=== PATIENT | male | born 1970 | race Caucasian/White ===

== ENCOUNTER → 2016-11-04 | Outpatient (CLI) | payer OTHER ==
[2016-11-04 17:17] LABS: BASO % 0.3 %; BASO ABS # 0.02 K/uL (0-0.2); COMPLETE YES; EOS % 3.4 %; HEMATOCRIT 41.4 % (42-52); LYMPH % 40.6 %; LYMPH ABS # 3.06 K/uL (1.2-3.4); MEAN CORPUSCULAR HEMOGLOBIN 31.5 pg (25-34); MEAN PLATELET VOLUME 10.1 fL (7.4-10.4); MONO % 6.8 %; NEUT % 48.9 %; PLATELET COUNT 255 K/uL (130-400); WHITE BLOOD COUNT 7.54 K/uL (4.8-10.8)
[2016-11-04 17:44] LABS: BLOOD UREA NITROGEN 14 mg/dl (7-18); BUN/CREATININE RATIO 14.3 (10-20); CARBON DIOXIDE 26 mmol/L (21-32); CHLORIDE 107 mmol/L (98-107); GLUCOSE 105 mg/dl (70-99); MAGNESIUM 2.2 mg/dl (1.8-2.4); POTASSIUM 3.7 mmol/L (3.5-5.1); SODIUM 142 mmol/L (136-145)
== END | disposition home or self-care (01) ==
LOC: C.LAB1850 16:07
PROVIDERS: ATTEND Internal Medicine
DX: R00.2 Palpitations (principal)

== ENCOUNTER → 2016-11-12 | Outpatient (CLI) | payer OTHER ==
[2016-11-12 09:16] LABS: CHOLESTEROL/HDL RATIO 6.5
== END | disposition home or self-care (01) ==
LOC: C.LAB 08:14
PROVIDERS: ATTEND Internal Medicine
DX: E78.5 Hyperlipidemia, unspecified (principal)

== ENCOUNTER → 2016-11-25 | Outpatient (CLI) | payer OTHER ==
--- NOTE | 2016-11-25 17:52 | EXERCISE STRESS ECHO ---
*NOTICE TO RECEIVING DEMOCRAT AGENCY This information is strictly Confidential and protected under [place] law. [place] law prohibits you from making any further disclosure of this information unless further disclosure is expressly permitted by the written consent of the person to whom it pertains or is authorized by law. A general authorization for the release of medical or other information is not sufficient for this purpose. Hospital accepts no responsibility if the information is made available to any other person, INCLUDING THE PATIENT. Interpretation Summary * Name: KM YIN Study Date: 11/25/2016 02:15 PM BP: 136/73 mmHg * Patient Location: [facility] HR: 69 * : 1970 (M/d/yyyy) Gender: Male Height: 68 in * Age: 46 yrs Ethnicity: [place] Weight: 200 lb * Ordering Physician: Jim Zamarripa * Referring Physician: Jim Zamarripa * Performed By: Zeny Zurita RCS * * Reason For Study: PALPITATIONS / HLD * BSA: 2.0 m2 * This was a normal stress echocardiogram. * Exercise capacity is above average. * The stress ECG response was normal * Normal resting wall motion and no stress-induced wall motion abnormality. * -- Conclusions -- * Ventricular ectopy at rest resolved with exertion Procedure Details * Images post stress were not retained to permanent storage but wre reviewed immediately post stress by supervising and interpreting physician. Left Ventricle * There is borderline concentric left ventricular hypertrophy. * Ejection Fraction = 55-60%. * Left ventricular systolic function is normal. * The left ventricular wall motion is normal. Right Ventricle * The right ventricle is normal in size and function. Atria * The left atrial size is normal. * Right atrial size is normal. * No ASD detected; PFO is not assessed. Mitral Valve * The mitral valve anatomy is normal. * There is no mitral valve stenosis. * There is no mitral regurgitation noted. Tricuspid Valve * The tricuspid valve anatomy is normal. * Doppler findings do not suggest pulmonary hypertension. * There is trace tricuspid regurgitation. Aortic Valve * The aortic valve is trileaflet. * No hemodynamically significant valvular aortic stenosis. * There is no significant aortic regurgitation. Pulmonic Valve * The pulmonic valve is not well visualized. Great Vessels * The aortic root is normal size. Pericardium * There is no pericardial effusion. Stress Parameters * Baseline EKG : normal sinus rhythm with occasional ventricular ectopy * Stress ECG: No ST changes. No arrhythmias. * Ventricular ectopy at rest resolved with exertion * The stress portion of this study was personally supervised by the undersigned interpreting physician. * Rest heart rate was '69' BPM. * Rest blood pressure was '136/73' * Maximum heart rate achieved was 164 bpm. * Maximum heart rate was 93 % of maximum age-predicted heart rate. * Maximum blood pressure was '207/74' * Total exercise time was '10:00' * Maximum exercise MET level achieved was '11.70' METS * Maximum treadmill speed was '4.20' miles per hour. * Maximum treadmill elevation was '16.00'% grade. MMode 2D Measurements and Calculations IVSd 1.1 cm IVSs 1.8 cm LVIDd 5.1 cm LVIDs 2.9 cm LVPWd 1.3 cm LVPWs 1.4 cm IVS/LVPW 0.86 FS 43.8 % EDV(Teich) 125.3 ml ESV(Teich) 31.6 ml EF(Teich) 74.8 % EDV(cubed) 134.7 ml ESV(cubed) 23.8 ml EF(cubed) 82.3 % % IVS thick 60.8 % % LVPW thick 7.4 % LV mass(C)d 236.8 grams LV mass(C)dI 115.9 grams/m\S\2 LV mass(C)s 159.6 grams LV mass(C)sI 78.1 grams/m\S\2 SV(Teich) 93.6 ml SI(Teich) 45.8 ml/m\S\2 SV(cubed) 110.8 ml SI(cubed) 54.2 ml/m\S\2 Ao root diam 3.9 cm Ao root area 11.9 cm\S\2 LA dimension 4.3 cm LA/Ao 1.1 LVOT diam 2.0 cm LVOT area 3.1 cm\S\2 LVAd ap4 30.0 cm\S\2 LVLd ap4 7.8 cm EDV(MOD-sp4) 92.0 ml EDV(sp4-el) 97.8 ml LVAs ap4 17.9 cm\S\2 LVLs ap4 6.2 cm ESV(MOD-sp4) 40.5 ml ESV(sp4-el) 44.3 ml EF(MOD-sp4) 55.9 % EF(sp4-el) 54.7 % LVAd ap2 38.2 cm\S\2 LVLd ap2 8.2 cm EDV(MOD-sp2) 140.1 ml EDV(sp2-el) 151.9 ml LVAs ap2 22.0 cm\S\2 LVLs ap2 7.1 cm ESV(MOD-sp2) 57.2 ml ESV(sp2-el) 58.4 ml EF(MOD-sp2) 59.1 % EF(sp2-el) 61.5 % LVLd %diff 4.4 % EDV(MOD-bp) 117.7 ml LVLs %diff 12.7 % ESV(MOD-bp) 50.9 ml EF(MOD-bp) 56.7 % SV(MOD-sp4) 51.5 ml SI(MOD-sp4) 25.2 ml/m\S\2 SV(MOD-sp2) 82.8 ml SI(MOD-sp2) 40.5 ml/m\S\2 SV(MOD-bp) 66.7 ml SI(MOD-bp) 32.7 ml/m\S\2 SV(sp4-el) 53.5 ml SI(sp4-el) 26.2 ml/m\S\2 SV(sp2-el) 93.4 ml SI(sp2-el) 45.7 ml/m\S\2 Doppler Measurements and Calculations MV E max yaron 96.5 cm/sec MV A max yaron 69.6 cm/sec MV E/A 1.4 MV P1/2t max yaron 101.2 cm/sec MV P1/2t 81.9 msec MVA(P1/2t) 2.7 cm\S\2 MV dec slope 362.0 cm/sec\S\2 MV dec time 0.23 sec Ao V2 max 125.9 cm/sec Ao max PG 6.3 mmHg Ao max PG (full) -0.52 mmHg LUDY(V,A) 3.3 cm\S\2 LUDY(V,D) 3.3 cm\S\2 LV V1 max PG 6.9 mmHg LV V1 max 131.0 cm/sec TR max yaron 275.4 cm/sec
== END | disposition home or self-care (01) ==
LOC: C.CPL 13:00
PROVIDERS: ATTEND Internal Medicine Cardiovascular Disease
DX: R00.2 Palpitations (principal); E78.5 Hyperlipidemia, unspecified; Z82.49 Family history of ischemic heart disease and other diseases of the circulatory system

== ENCOUNTER → 2017-08-12 | Outpatient (CLI) | payer OTHER ==
[2017-08-12 08:29] LABS: CHOLESTEROL/HDL RATIO 6.5
== END | disposition home or self-care (01) ==
LOC: C.LAB 07:47
PROVIDERS: ATTEND Internal Medicine
DX: E78.5 Hyperlipidemia, unspecified (principal)

== ENCOUNTER → 2018-02-03 | Outpatient (CLI) | payer OTHER | END | disposition home or self-care (01) | LOC: C.LAB 07:41 | PROVIDERS: ATTEND Internal Medicine | DX: E78.5 Hyperlipidemia, unspecified (principal) ==